=== PATIENT | female | born 1980 | race Caucasian/White ===

== ENCOUNTER → 2021-12-05 09:31 | Outpatient (CLI) | payer BC, SELFPAY ==
[2021-12-05 20:18] LABS: Alanine Aminotransferase 22 IU/L (<35); Albumin 4.3 g/dL (3.5-5.0); Albumin Globulin Ratio 1.6 (1.0-2.8); Alkaline Phosphatase 42 U/L (38-126); Aspartate Aminotransferase 24 IU/L (14-36); BUN Creatinine Ratio 20.6 (6-22); Bilirubin Total 0.6 mg/dL (0.2-1.3); Blood Urea Nitrogen 13 mg/dL (7-17); Calcium 9.5 mg/dL (8.4-10.2); Carbon Dioxide 29 mmol/L (22-32); Chloride 104 mmol/L (98-107); Estimated Glomerular Filt Rate > 60.0 mL/min (>60); Globulin 2.7 g/dL (1.7-4.1); Glucose 85 mg/dL (70-100); HEMOLYSIS < 15 (0-50); Potassium 4.1 mmol/L (3.4-5.1); Sodium 137 mmol/L (137-145)
[2021-12-05 20:21] LABS: Add Manual Diff / Slide Review NO; Basophils Absolute Auto 0 /uL (0-100); Basophils Percent Auto 0.4 % (0-2); Eosinophils Absolute Auto 100 /uL (0-450); Eosinophils Percent Auto 2.4 % (2-4); Hematocrit 37.8 % (36-46); Lymphocytes Absolute Auto 1500 /uL (1100-4500); Mean Corpuscular HGB Conc 34.4 % (30-36); Mean Corpuscular Hemoglobin 31.7 PG (26-34); Mean Corpuscular Volume 92.2 fL (80-100); Monocytes Absolute Auto 600 /uL (0-900); Monocytes Percent Auto 9.9 % (3-14); Neutrophils Absolute Auto 3600 /uL (1500-7000); Neutrophils Percent Auto 62.3 % (50-75); Platelet Count 269 X10^3/uL (150-400); Red Cell Distribution Width 13.1 % (11.6-14.8); White Blood Cell Count 5.8 X10^3/uL (4.5-11.0)
[2021-12-05 20:53] LABS: TSH w/ Reflex to FT4 2.02 uIU/mL (0.47-4.68)
== END ==
PROVIDERS: PCP Physician Assistant Medical; Visit Provider Family Medicine
DX: N64.4 Mastodynia (principal); Z80.3 Family history of malignant neoplasm of breast
CPT/HCPCS: 80053; 84443; 85025

== ENCOUNTER → 2022-07-31 09:49 | Outpatient (CLI) | payer BC, SELFPAY ==
[2022-07-31 20:27] LABS: Influenza A - CEPHEID Flu A NEGATIVE (NEGATIVE); Influenza B - CEPHEID Flu B NEGATIVE (NEGATIVE); Respiratory Syncytial Virus Negative (Negative)
[2022-07-31 20:28] LABS: COVID-19 CEPHEID 4-PLEX PCR Negative (Negative)
== END ==
PROVIDERS: PCP Physician Assistant Medical; Visit Provider Physician Assistant Medical
DX: J02.9 Acute pharyngitis, unspecified (principal)
CPT/HCPCS: 0241U

== ENCOUNTER → 2023-12-24 13:31 | Outpatient (CLI) | payer BC, SELFPAY ==
[2023-12-28 15:31] LABS: Interpretation Negative (Negative)
[2024-01-01 00:07] LABS: Deamidated Gliadin Ab IgA 3 units (0-19); Deamidated Gliadin Ab IgG 2 units (0-19); Immunoglobulin A,Qn 176 mg/dL (87-352); t-Transglutaminase IgA <2 U/mL (0-3)
== END ==
PROVIDERS: PCP Family Medicine; Visit Provider Family Medicine
DX: K59.00 Constipation, unspecified (principal); R10.13 Epigastric pain
CPT/HCPCS: 82784; 83013; 83516

== ENCOUNTER → 2024-11-10 10:05 | Outpatient (CLI) | payer BC, SELFPAY ==
--- NOTE | 2024-11-10 10:07 | DI.RAD.S_ITS ---
PROCEDURE: XR WRIST LT MIN 3V INDICATIONS: fall backward on wrist, pain swelling @ ulnar aspect TECHNIQUE: Four views of the left wrist were acquired. COMPARISON: None. FINDINGS: Bones: Minimally displaced avulsion fracture of the dorsal triquetrum is seen on the lateral view. Ulnar minus anomaly noted. Joint spaces are normal with align with arthritic change. Soft tissues: Mild diffuse soft tissue swelling noted IMPRESSION: Minimally displaced avulsion fracture of the dorsal triquetrum Dictated by: Joshua De Leon M.D. on 11/11/2024 at 11:25 Approved by: Joshua De Leon M.D. on 11/11/2024 at 11:31
== END ==
PROVIDERS: PCP Family Medicine; Referring Provider Nurse Practitioner Family; Visit Provider Nurse Practitioner Family
DX: S62.115A Nondisplaced fracture of triquetrum [cuneiform] bone, left wrist, initial encounter for closed fracture (principal); W19.XXXA Unspecified fall, initial encounter
CPT/HCPCS: 73110

== ENCOUNTER → 2025-04-27 13:30 | Outpatient (CLI) | payer BC, SELFPAY ==
[2025-04-27 19:33] LABS: Add Manual Diff / Slide Review NO; Hematocrit 33.4 % (36-46); Hemoglobin 11.8 g/dL (12.0-16.0); Lymphocytes Absolute Auto 1800 /uL (1100-4500); Mean Corpuscular HGB Conc 35.2 % (30-36); Mean Corpuscular Hemoglobin 32.5 PG (26-34); Mean Corpuscular Volume 92.4 fL (80-100); Platelet Count 248 X10^3/uL (150-400)
[2025-04-27 19:50] LABS: Alanine Aminotransferase 20 IU/L (<35); Albumin 4.2 g/dL (3.5-5.0); Albumin Globulin Ratio 2.2 (1.0-2.8); Alkaline Phosphatase 45 U/L (38-126); Blood Urea Nitrogen 14 mg/dL (7-17); Calcium 9.1 mg/dL (8.4-10.2); Carbon Dioxide 27 mmol/L (22-32); Chloride 105 mmol/L (98-107); Estimated Glomerular Filt Rate > 60 mL/min (>60); Globulin 1.9 g/dL (1.7-4.1); Glucose 91 mg/dL (70-99); HEMOLYSIS < 15 (0-50); Potassium 4.0 mmol/L (3.4-5.1); Sodium 140 mmol/L (137-145); Total Protein 6.1 g/dL (6.3-8.2)
[2025-04-27 20:08] LABS: Vitamin D 25 Hydroxy (D3) 39.8 ng/mL (30.0-100.0)
[2025-04-27 20:26] LABS: Ferritin 17 ng/mL (6-137)
[2025-04-27 23:05] LABS: HEMOLYSIS < 15 (0-50); Iron 99 ug/dL (37-170)
[2025-04-27 23:19] LABS: Percent Iron Saturation 40 % (15-50); Total Iron Binding Capacity 246 ug/dL (265-497); Transferrin 191 mg/dL (206-381)
[2025-04-27 23:36] LABS: Thyroid Stimulating Hormone 0.822 uIU/mL (0.47-4.68)
[2025-04-27 23:55] LABS: Vitamin B12 338 pg/mL (239-931)
== END ==
PROVIDERS: PCP Family Medicine; Visit Provider Family Medicine
DX: R10.13 Epigastric pain (principal); R11.2 Nausea with vomiting, unspecified; R19.7 Diarrhea, unspecified; R53.83 Other fatigue; K59.00 Constipation, unspecified
CPT/HCPCS: 80053; 82306; 82607; 82728; 82784; 83516; 83540; 83550; 84443; 85025

== ENCOUNTER → 2025-05-03 09:15 | Outpatient (CLI) | payer BC, SELFPAY ==
--- NOTE | 2025-05-03 09:15 | DI.US.S_ITS ---
PROCEDURE: US ABDOMEN LIMITED INDICATIONS: EPISODIC ABDOMEN PAIN. NAUSEA/VOMITING. TECHNIQUE: Real-time focused scanning was performed of the abdomen, with image documentation. COMPARISON: None. FINDINGS: The liver demonstrates enlarged size. The liver demonstrates generalized mildly increased echogenicity. This decreases ultrasound sensitivity for detection of hepatic masses. No findings of gallstones or sludge are seen. The gallbladder wall is not thickened, measuring 3 mm or less. No specific pericholecystic fluid is seen. The sonographic Barragan sign is negative. There is no biliary dilatation, the common bile duct measures 5 mm. No significant pancreatic abnormality is seen on these images. IMPRESSION: The gallbladder demonstrates a normal sonographic appearance. No biliary dilatation is seen. Enlarged, mildly fatty infiltrated liver. Dictated by: Keon Posey M.D. on 05/03/2025 at 9:35 Approved by: Keon Posey M.D. on 05/03/2025 at 9:36
== END ==
LOC: US 09:15
PROVIDERS: PCP Family Medicine; Referring Provider Family Medicine; Visit Provider Family Medicine
DX: R10.13 Epigastric pain (principal); R11.2 Nausea with vomiting, unspecified; K76.0 Fatty (change of) liver, not elsewhere classified
CPT/HCPCS: 76705

== ENCOUNTER → 2025-06-28 07:50 | Outpatient (CLI) | payer BC, SELFPAY ==
--- NOTE | 2025-06-28 07:51 | DI.NM.S_ITS ---
PROCEDURE: NM HIDA WITH CCK PHARMACEUTICAL: 5.2 mCi Tc-99m mebrofenin IV; 1.4 mcg CCK IV. INDICATIONS: RUQ pain TECHNIQUE: Following intravenous administration of Tc-99m mebrofenin, sequential anterior abdominal images were obtained. To evaluate the contractile response of the gallbladder in response to Cholecystokinin (CCK), sincalide (0.02 ???g/kg) was administered by slow intravenous infusion approximately 60 minutes after the administration of the radiopharmaceutical. Sequential imaging was continued for 30 minutes after the start of CCK infusion. Gallbladder ejection fraction was calculated. COMPARISON: [facility], CT, CT ABDOMEN PELVIS W CON, 06/02/2025, 15:31. [facility], US, US ABDOMEN LIMITED, 05/03/2025, 9:33. FINDINGS: Biliary scan: There is normal tracer uptake and excretion by the liver. There is normal visualization of the intrahepatic ducts, common bile duct, and gallbladder. There is normal tracer transit into the duodenum. CCK stimulation: There is absent contractile response of the gallbladder to CCK infusion. The calculated gallbladder ejection fraction is -4%; normal values are above 35%. It has been shown that any patient abdominal pain after CCK administration is related to the rate of CCK injection, rather than to any underlying gallbladder disease (Clinical Nuclear Medicine 2012; 37: 63-70. Journal of Nuclear Medicine 2014; 55: 1-9). IMPRESSION: Abnormal study demonstrating absence of contractile response to CCK administration. Finding can reflect either chronic cholecystitis or biliary dyskinesia. Dictated by: Haylee Luke MD, PhD on 06/28/2025 at 10:00 Approved by: Haylee Luke MD, PhD on 06/28/2025 at 10:02
== END ==
PROVIDERS: PCP Family Medicine; Referring Provider Nurse Practitioner Family; Visit Provider Nurse Practitioner Family
DX: R10.11 Right upper quadrant pain (principal); K59.00 Constipation, unspecified; D50.9 Iron deficiency anemia, unspecified; R11.10 Vomiting, unspecified
CPT/HCPCS: 78227; A9537; J2805

== ENCOUNTER 2025-08-01 08:57 | Day surgery (SDC) | payer BC, SELFPAY ==
[2025-07-19 13:25] VITALS: BMI 23.8
[2025-08-01] VITALS (10 sets, daily range): BP systolic 65–106; BP diastolic 52–64; PULSE 52–68; RESP 16–20; TEMP 36.4–36.9; O2SAT 99–100
--- NOTE | 2025-08-01 | DI.RAD.S_ITS ---
PROCEDURE: XR CHOLANGIOGRAM OPERATIVE
--- NOTE | 2025-08-01 06:37 | P.OP.PRE_ITS ---
Pre-operative Note
--- NOTE | 2025-08-01 06:37 | PM.PREOP ---
Pre-operative Note Interval Note History & Physical reviewed/Exam performed by Physician: Yes Changes to H&P: No ASA Class (for procedural sedation): I
[2025-08-01] MEDS: LACTATED RINGERS 1,000 ML 42 ML IV ×2 (09:35→13:06)
[2025-08-01] MEDS: SCOPOLAMINE 1 PATCH TOP (09:36)
[2025-08-01] MEDS: ACETAMINOPHEN IV 1,000 MG/100 ML VIAL 400 MG IV (09:40)
--- NOTE | 2025-08-01 10:29 | SUR.OPER ---
Supine on padded OR bed, head on pillow, right arm tucked with gel pad, left arm secured on padded arm board at <90 degrees abduction, legs uncrossed, foot board, safety belt at thigh, provider approved final positioning.
[2025-08-01] MEDS: BUPivacaine 0.25% W/ EPI (PF) 30 ML VIAL 60 ML INJ (10:37)
--- NOTE | 2025-08-01 10:53 | P.OP_ITS ---
Operative Date/Time/Diagnoses
--- NOTE | 2025-08-01 10:53 | PM.OP.1 ---
Operative Date/Time/Diagnoses Date of procedure: 08/01/25 Time of procedure: 10:53 Pre-op diagnosis: Chronic acalculous cholecystitis, +HIDA Post-op diagnosis: same Procedure & Clinicians Procedure: Laparoscopic cholecystecomy with cholangiogram Same procedure(s) as scheduled: Yes Indications: 44yo F, biliary symptoms, +HIDA scan, upper and lower endoscopy unrevealing in etiology of symptoms further implicating the gallbladder. Surgeon: Bry Gama Assisted?: Yes Tobacco Feeder Catcher: Ej Lamar Anesthesia Type: General Operative Notes Findings: No omental adhesions, gallbladder slightly distended but easy to grasp, normal cholangiogram Closure Type: primary Specimen(s): other (gallbladder) Applied: none Estimated Blood Loss (mL): 10 Blood products transfused: none Procedure in detail: After informed consent and satisfactory general endotracheal anesthesia, the abdomen was prepped and draped in the usual sterile manner. The patient received appropriate preoperative antibiotics and DVT prophylaxis. Surgical time-out was performed with all team members in agreement. The pneumoperitoneum was established under direct vision using the Stokes direct trocar cutdown technique. An 0 Vicryl vwxsnk-[id number] suture was placed on the umbilical fascia. The 10 mm 30 degree lens was inserted and no trauma secondary to the trocar insertion was noted. We performed bilateral laparoscopic TAP blocks using 25 cc of 0.25% Marcaine with epinephrine. The additional 10 cc of local was used in the skin and subcutaneous tissues at the incision sites for a total of 60 cc of local. The patient was placed in reverse Trendelenburg, [id number] position. The fundus of the gallbladder was grasped and retracted over the liver. The infundibulum was retracted laterally for proper exposure of the cystic duct and artery. Critical view of safety was achieved with 2 distinct structures entering the gallbladder and segment 5 of the liver posterior. A cholangiogram was performed using a yellow ureteral catheter through the Solo clamp. The cystic duct and cystic artery were skeletonized with hook cautery. A clip was placed on the cystic duct next to the gallbladder. A ductotomy was made with laparoscopic Metzenbaum scissors. The cholangiogram was normal. It demonstrated normal caliber right and left hepatic ducts, common hepatic duct and common bile duct without filling defect, mass or stricture. The contrast flowed unobstructed into the duodenum. The cholangiogram catheter was removed and the cystic duct was doubly clipped and divided. The cystic artery was similarly skeletonized, doubly clipped and divided with laparoscopic Metzenbaum scissors. The adhesions between the gallbladder and the liver were divided with hook cautery. The gallbladder was placed into an endo-pouch and removed. The gallbladder bed and clips were inspected and no bleeding or bile drainage was noted. The trocars were removed and there was no bleeding noted at the trocar sites. The 0 Vicryl [id number]-fezyw suture was tied and there were no palpable fascial defects. The skin incisions were closed using 4-0 Monocryl in a subcuticular manner. Dermabond glue was applied as a final dressing. The estimated blood loss was minimal. The instrument sponge and needle counts were all correct x2. The patient tolerated the procedure well and was extubated in the operating room and transported to the recovery area in stable condition. Complications: none Post-operative Condition: stable Disposition: PACU Plan for aftercare: PACU then home
[2025-08-01] MEDS: KETOROLAC 30 MG/ML VIAL IV (11:18)
[2025-08-01] MEDS: ONDANSETRON 4 MG/2 ML INJ IV (11:18)
--- NOTE | 2025-08-01 12:25 | SUR.PHASEII ---
Pt c/o continuing nausea, zofran doesn't work for me usually, reviewed chart, pt has promethazine for postop antiemetic. Called Dr River who will order promethazine 12.5mg PO as well as ephedrine IM. Will monitor for relief of nausea
[2025-08-01] MEDS: PROMETHAZINE 25 MG TABLET 12.5 MG PO (12:28)
== END 2025-08-01 14:20 | disposition home or self-care (01) ==
PROVIDERS: PCP Family Medicine; Referring Provider Surgery; Visit Provider Surgery
PROC: 0FT44ZZ Resection of Gallbladder, Percutaneous Endoscopic Approach (ICD-10-PCS; CPT 47563; principal; 2025-08-01 10:45)
DX: K80.10 Calculus of gallbladder with chronic cholecystitis without obstruction (principal); N73.6 Female pelvic peritoneal adhesions (postinfective)
CPT/HCPCS: 47563; 74300; 81025; J0131; J0689; J1100; J1171; J1885; J2250; J2405; J2704; J3010; J3490; J7120; Q9967

== ENCOUNTER → 2025-09-06 12:00 | Outpatient (CLI) | payer BC, SELFPAY ==
[2025-09-06 19:03] LABS: HEMOLYSIS < 15 (0-50); Iron 130 ug/dL (37-170)
[2025-09-06 19:06] LABS: Alanine Aminotransferase 24 IU/L (<35); Albumin 4.6 g/dL (3.5-5.0); Albumin Globulin Ratio 1.8 (1.0-2.8); Alkaline Phosphatase 56 U/L (38-126); Blood Urea Nitrogen 9 mg/dL (7-17); Calcium 9.3 mg/dL (8.4-10.2); Carbon Dioxide 26 mmol/L (22-32); Chloride 103 mmol/L (98-107); Estimated Glomerular Filt Rate > 60 mL/min (>60); Globulin 2.5 g/dL (1.7-4.1); Glucose 93 mg/dL (70-99); HEMOLYSIS 17 (0-50); Potassium 4.3 mmol/L (3.4-5.1); Sodium 139 mmol/L (137-145); Total Protein 7.1 g/dL (6.3-8.2)
[2025-09-06 19:14] LABS: Percent Iron Saturation 54 % (15-50); Total Iron Binding Capacity 240 ug/dL (265-497); Transferrin 199 mg/dL (206-381)
[2025-09-06 19:41] LABS: Ferritin 77 ng/mL (6-137)
[2025-09-06 19:49] LABS: Reticulocyte Count, Percent 0.7 % (1.1-2.6)
[2025-09-06 19:54] LABS: Add Manual Diff / Slide Review NO; Hematocrit 37.0 % (36-46); Hemoglobin 12.6 g/dL (12.0-16.0); Lymphocytes Absolute Auto 1600 /uL (1100-4500); Mean Corpuscular HGB Conc 33.9 % (30-36); Mean Corpuscular Hemoglobin 31.2 PG (26-34); Mean Corpuscular Volume 92.1 fL (80-100); Platelet Count 274 X10^3/uL (150-400)
[2025-09-06 20:10] LABS: Folate 6.7 ng/mL (2.76-20.0)
== END ==
PROVIDERS: PCP Family Medicine
DX: D50.9 Iron deficiency anemia, unspecified (principal); D64.9 Anemia, unspecified; R53.83 Other fatigue; R79.0 Abnormal level of blood mineral
CPT/HCPCS: 80053; 82728; 82746; 83540; 83550; 85025; 85045